=== PATIENT | female | born 1985 | race Caucasian/White ===

== ENCOUNTER 2016-12-30 12:29 | Inpatient (IN) | payer OTHER ==
--- NOTE | ~2016-12-30 | HP ---
History And Physical [place] [id number] [facility] [place]. [address] NAME: KATELYN RIOS : 83 STATUS : ADM IN PAT#: [id number] AGE: 31 ADM/REG DATE : 12/30/16 MR#: [id number] REPORT SERV DATE: 12/30/16 DICTATED BY: SARAHI JAIN DATE: 12/30/16 REPORT STATUS : Draft TRANSCRIBED BY: MODL DATE: 12/30/16 DATE OF ADMISSION: 12/30/2016 REASON FOR ADMISSION: Direct admission for Crohn's flare with a partial small-bowel obstruction near the terminal ilium. PRIMARY CARE DOCTOR: Unclear but sees Dr. Killian for GI needs. HISTORY OF PRESENT ILLNESS: This is a very pleasant, 31-year-old, female. She has suffered from Crohn's and previously was on Cimzia but had nausea and vomiting due to that. Recently had been on Humira for about the past seven months, typically has Crohn's flares with abdominal pain that is more periumbilical and nausea and vomiting. However, at this time, she had more intense abdominal pain periumbilically but also in the right lower quadrant prompting [facility], who did a CT of the abdomen and pelvis, and delineated wall thickening and dilation of distal terminal ilium consistent with Crohn disease, dilated proximal bowel consistent with partial small bowel obstruction. The patient states clinically her nausea and vomiting, for which there has been mildly bilious and no hematemesis has improved since being at [facility]. She does not want an NG tube at this time. She does feel feverish, however, does not have a subjective fever. No chills. Positive nausea and vomiting described. No chest pain. No chest pressure. No shortness of breath. [facility] called [facility], recommended hospitalist admission, which we are happy to assist. REVIEW OF SYSTEMS: 10-point review of systems done, see HPI. Otherwise, negative. SOCIAL HISTORY: Still smokes about a half pack per day. No alcohol. No drug use per patient. FAMILY HISTORY: Hypertension, at least one parent. HOME MEDICATIONS: See MAR. Continue what is relevant. PAST SURGICAL HISTORY: None. PAST MEDICAL HISTORY: See above. ALLERGIES: NO KNOWN DRUG ALLERGIES. PHYSICAL EXAMINATION: VITAL SIGNS: Blood pressure 119/59, 98.4 temp, 88 pulse, 16 respirations, 99% on room air. GENERAL: No acute distress. HEENT: PERRLA. No scleral icterus. CARDIOVASCULAR: Regular rate and rhythm. No murmur. RESPIRATORY: Clear to auscultation bilaterally. No wheezes. No crackles. ABDOMEN: She does have some mild tenderness to palpation periumbilical right lower History And Physical [address] [address] NAME: KATELYN RIOS : [birth year] STATUS : ADM IN PAT#: [id number] AGE: 31 ADM/REG DATE : 12/30/16 MR#: [id number] REPORT SERV DATE: 12/30/16 DICTATED BY: SARAHI JAIN DATE: 12/30/16 REPORT STATUS : Draft TRANSCRIBED BY: JAE DATE: 12/30/16 quadrant. No peritoneal signs. No rebound tenderness. EXTREMITIES: No edema. No ecchymosis. NEURO: GCS 15. A and O x4 out of 4. PSYCHIATRIC: Normal affect and mood. LABORATORY DATA: They are all pending here. CT, see above. ASSESSMENT AND PLAN: 1. Crohn's flare with terminal ileal thickening per CT at [facility]. 2. Partial small bowel obstruction proximal to that terminal ileum. 3. Improved nausea and vomiting, declines NG tube. 4. History of Humira use last week, takes normally q.2 weeks. 5. Positive fevers and immunocompromised state from Humira. PLAN: To go ahead and admit this patient. Panculture, Levaquin, Flagyl, D5, LR. If she has increased nausea, vomiting, or abdominal pain, place NG tube to low intermittent suction at this time. Place on IV Reglan. KUB tomorrow with hopeful clearance. Solu-Medrol 30 IV b.i.d. We will defer to GI regarding potential escalation of anti Crohn's biologic therapy. N.p.o. except medications and ice chips. Hopefully, she can do clears tomorrow if her ileus improves. Mag citrate at this time as well. See rest of my orders. All questions were answered. It took well over 60 minutes to do. Reference [employer] and [employer] WST/MODL Sarahi Jain DO / [id number] CC: DO Bhargavi Shearer DO
--- NOTE | ~2016-12-30 | DS ---
Discharge Summary [facility] [place] [address] [place]. [address] NAME: KATELYN RIOS : 83 STATUS : DIS IN PAT#: [id number] AGE: 31 ADM/REG DATE : 12/30/16 MR#: [id number] REPORT SERV DATE: 01/01/17 DICTATED BY: CHEMA LARA DATE: 01/01/17 REPORT STATUS : Draft TRANSCRIBED BY: MODL DATE: 01/01/17 ADMISSION DATE: 12/30/2016 DISCHARGE DATE: 01/01/2017 CONDITION ON DISCHARGE: Stable. DISPOSITION: Discharged to home with advice to follow up with GI specialist, Dr. Killian, in the next one to two weeks. We will try to set up an appointment for the patient before the patient is discharged. DIAGNOSES ON DISCHARGE: 1. Acute abdominal pain, nausea, vomiting secondary to partial small bowel obstruction- this has completely resolved now. 2. Probable acute exacerbation of Crohn's disease versus acute reaction to Humira. This has resolved also. 3. Chronic Crohn's disease, for which the patient takes Humira on a regular basis through GI specialist. 4. Chronic constipation, for which the patient takes Linzess on a regular basis. BRIEF HOSPITAL COURSE: The patient is a very pleasant 31-year-old female patient, who was been admitted to the hospital several times in the past for nausea, vomiting, constipation, and partial small bowel obstruction. According to the patient, this happens to her every time she takes the Humira shots. The patient states that she feels better for about two days after she takes the Humira and then after that, all this hits and sometimes she ends up being even hospitalized for this. Within two days, again the patient states that this resolves, but she is having had to take repeated courses of antibiotics. Anyway, the patient was admitted to the hospital for IV fluids, IV antibiotics, supportive care, and we waited for resolution of her partial small bowel obstruction. This did resolve and the patient had a bowel movement after magnesium citrate was given to the patient. She feels much better today and has no nausea, vomiting, is able to tolerate her food. She is ambulatory. She has no abdominal pain and no other bowel symptoms today. So, she requests discharge and she will be discharged. She will be discharged on the following medications, Augmentin 875 mg p.o. b.i.d. for twelve more days, Florastor one capsule twice a day for the same that she will be taking the Augmentin, prednisone taper 30 mg once a day for three days, 25 mg once a day for three days, 20 mg once a day for three days, 15 mg once a day for three days, 10 mg once a day for three days, 5 mg once a day for three days, and stop. Most recent labs that we have on her include blood cultures, which have come back with no growth in two days. CBC that shows WBC 7.6, hemoglobin and hematocrit 9.5 and 29.3, platelet count of 324. Her electrolyte profile shows completely normal electrolytes, BUN, and creatinine at this time. The patient also had KUB which showed partial small bowel obstruction on 12/31/2016. However, today 01/01/2017, her bowel obstruction has resolved. She will be sent home today on 01/01/2017 if okay with GI with advice to follow up with Dr. Killian in the next one to two Discharge Summary [address] [address] NAME: KATELYN RIOS : 83 STATUS : DIS IN PAT#: [id number] AGE: 31 ADM/REG DATE : 12/30/16 MR#: [id number] REPORT SERV DATE: 01/01/17 DICTATED BY: CHEMA LARA DATE: 01/01/17 REPORT STATUS : Draft TRANSCRIBED BY: JAE DATE: 01/01/17 weeks. I have spent about 35 to 40 minutes in coordinating discharge care of this patient including [id number] encounter and summarizing this discharge. DICTATED BY: Zoltan Rubio/JAE Chema Lara M.D. / [id number] CC: Zoltan Rubio DO
--- NOTE | ~2016-12-30 | CN ---
Consultation Report [facility] [address] [place]. [address] NAME: KATELYN PELAYO : 83 STATUS : ADM IN PAT#: [id number] AGE: 31 ADM/REG DATE : 12/30/16 MR#: [id number] REPORT SERV DATE: 12/31/16 DICTATED BY: TIKI CHO DATE: 12/31/16 REPORT STATUS : Draft TRANSCRIBED BY: MODL DATE: 12/31/16 GI CONSULTATION DATE OF CONSULTATION: 12/31/2016 REASON FOR CONSULTATION: Evaluation and management of abdominal pain, history of Crohn's disease, partial small bowel obstruction. HISTORY OF PRESENT ILLNESS: Ms. Pelayo is a very pleasant 31-year-old female patient, who is known to Dr. Bruno Killian in the outpatient setting, who presented to [facility] as a transfer from [facility] secondary to Crohn's flare with CT evidence of partial small bowel obstruction. Ms. Pelayo is a very pleasant 31-year-old female patient, who sees Dr. Killian in the outpatient setting. She has recently seen him on 12/27/2016 and plans at that time were to have the patient undergo colonoscopy in February. She has a history of Crohn's diagnosis in 07/2015 after being seen for what she describes as acute abdominal discomfort. She has back on Humira, Entyvio, Cimzia, and has back on Humira secondary to side effects from the other medication. She states that she took her regular dose of Humira on the . She does tell me that typically after taking a dose of Humira, she will have some abdominal discomfort, which typically resolves within 24 hours. However, at this time her symptoms progressed to the point she was nauseous, having dry heaves as well as increased abdominal discomfort. CT scan at [facility] showed abnormal wall thickening and dilation of the distal terminal ilium consistent with Crohn's disease as well as a dilated proximal bowel consistent with partial small bowel obstruction. She has been started on Levaquin, Flagyl as well as IV steroids and given a bottle of magnesium citrate per the hospitalist direction. She tells me that she is having diarrhea, typically she errs on the side of constipation, taking Linzess daily. She reports that she has had good improvement in her symptoms. She has a KUB which is pending at present and plan on starting her on a clear liquid diet. Continuing her steroids. Following up imaging and advancing her diet as tolerated. It was planned for her to have an outpatient colonoscopy in February with Dr. Killian. PAST MEDICAL HISTORY: Positive for Crohn's disease, ileitis, positive for tobacco abuse, cervical precancer, undergoing colposcopy. PAST SURGICAL HISTORY: None. PROCEDURES: EGD, colonoscopy, and colposcopy. FAMILY HISTORY: Noncontributory from a GI standpoint. Specifically, no inflammatory bowel disease history. SOCIAL HISTORY: Positive for tobacco, half pack per day. Denies alcohol or illicit drugs. Consultation Report [address] [place]. [address] NAME: KATELYN PELAYO : 83 STATUS : ADM IN [facility]#: [id number] AGE: 31 ADM/REG DATE : 12/30/16 MR#: [id number] REPORT SERV DATE: 12/31/16 DICTATED BY: TIKI CHO DATE: 12/31/16 REPORT STATUS : Draft TRANSCRIBED BY: JAE DATE: 12/31/16 ALLERGIES: SHE HAS NO KNOWN LISTED DRUG ALLERGIES. SHE STATES SHE HAS INTOLERANCE TO ENTYVIO AND CIMZIA. HOME MEDICATIONS: Consist of Humira every two weeks, Linzess, MiraLAX, Prilosec, Zofran. REVIEW OF SYSTEMS: A 10-point review of systems has been obtained with pertinent positives being addressed in the history of present illness. PHYSICAL EXAMINATION: VITAL SIGNS: Temperature is 98.1, pulse 66, respirations 16, blood pressure 114/70. NEUROLOGIC: An alert, female, resting in bed, but no focal deficits. GENERAL: Cooperative, in no apparent distress. Awake, alert, and oriented x3. HEAD, EARS, EYES, NOSE, AND THROAT: Anicteric. Pupils are equal, round, reactive to light, and accommodation. Normocephalic and atraumatic. NECK: No JVD. No palpable nodes. LUNGS: Clear anteriorly with normal respiratory effort exhibited. Equal expansion. CARDIOVASCULAR SYSTEM: Regular rate and rhythm. S1 and S2. No murmurs, rubs, gallops, S3, or S4 appreciated. ABDOMEN: Soft and flat with active bowel sounds. No organomegaly appreciated. Very minimal tenderness to palpation. No rebound or guarding elicited. EXTREMITIES: No edema. Normal distal pulses. SKIN: Warm, dry, and intact. PERTINENT LABORATORY DATA: Sodium 140, potassium 3.9, BUN is 7, creatinine 0.58. White count 6.7, hemoglobin 9.6, hematocrit 29.6, lactate 0.7. Procalcitonin less than 0.05. ASSESSMENT: 1. Abdominal pain, nausea with vomiting. 2. Crohn's flare with gastrointestinal thickening with resultant partial small bowel obstruction. 3. Fever which appears resolved. 4. History of tobacco abuse. PLAN: 1. Follow up KUB from today. 2. Clear liquid diet, advance as tolerated. 3. Steroids via IV today, change to p.o. in the morning. 4. Morning labs. 5. We will follow. IBRAHIMA/JAE Consultation Report [address] [place]. [address] NAME: KATELYN PELAYO : 83 STATUS : ADM IN PAT#: [id number] AGE: 31 ADM/REG DATE : 12/30/16 MR#: [id number] REPORT SERV DATE: 12/31/16 DICTATED BY: TIKI CHO DATE: 12/31/16 REPORT STATUS : Draft TRANSCRIBED BY: JAE DATE: 12/31/16 JASWANT Almeida / [id number] CC: DO Bhargavi Shearer DO
[2016-12-30 14:34] LABS: BASOPHILS 0.2 %; BASOPHILS ABSOLUTE 0.01 10/3/uL (0.0-0.16); EOSINOPHILS 0.2 %; EOSINOPHILS ABSOLUTE 0.01 10/3/uL (0.0-0.53); HEMATOCRIT 35.8 % (36.0-48.0); HEMOGLOBIN 11.5 g/dL (12.0-16.0); IMMATURE GRANULOCYTES 0.3 %; IMMATURE GRANULOCYTES ABSOLUTE 0.02 10/3/uL (0.0-0.11); LYMPHOCYTES 12.7 %; LYMPHOCYTES ABSOLUTE 0.83 10/3/uL (0.67-4.30); MEAN CORPUS HGB CONC 32.1 g/dL (32.0-36.0); MEAN CORPUSCULAR HEMOGLOB 27.9 pg (26.0-34.0); MEAN CORPUSCULAR VOLUME 86.9 fL (80-100); MEAN PLATELET VOLUME 9.7 fL (9.2-13.0); MONOCYTES 0.5 %; MONOCYTES ABSOLUTE 0.03 10/3/uL (0.21-1.20); NEUTROPHILS 86.1 %; NEUTROPHILS ABSOLUTE 5.63 10/3/uL (2.02-8.40); PLATELET COUNT 329 10/3/uL (150-400); RBC DISTRIBUTION WIDTH 13.5 % (12.0-16.0); RED CELL COUNT 4.12 10/6/uL (4.0-5.6); WHITE BLOOD CELLS 6.5 10/3/uL (4.5-10.5)
[2016-12-30 14:36] LABS: MANUAL DIFF NO %
[2016-12-30 14:55] LABS: LACTATE 0.7 MMOL/L (0.3-2.4)
[2016-12-30 14:57] LABS: A/G RATIO 0.6 (0.7-1.9); ALBUMIN 2.9 G/DL (3.5-5.0); ALKALINE PHOSPHATASE 88 U/L (45-117); BUN (BLOOD UREA NITROGEN) 5 MG/DL (6-23); CALCIUM, SERUM 8.3 MG/DL (8.5-10.4); CHLORIDE, SERUM 108 MMOL/L (96-112); CO2 (CARBON DIOXIDE) 23 MMOL/L (24-34); CREATININE 0.53 MG/DL (0.55-1.02); GFR AFRICAN AMERICAN 146 ML/MIN (>=60); GFR NON AFRICAN AMERICAN 126 ML/MIN (>=60); GLOBULIN 4.6 G/DL (2.5-4.1); GLUCOSE, SERUM 129 MG/DL (60-99); PHOSPHORUS, SERUM 1.6 MG/DL (2.5-4.5); POTASSIUM, SERUM 3.4 MMOL/L (3.5-5.3); SGOT(AST) 14 U/L (5-40); SGPT(ALT) 24 U/L (5-65); SODIUM, SERUM 141 MMOL/L (135-148); TOTAL BILIRUBIN 0.4 MG/DL (0-1.2); TOTAL PROTEIN 7.5 G/DL (6.0-8.5); ULTRASENSITIVE TSH 0.304 MCIU/ML (0.358-3.740)
[2016-12-30 15:17] LABS: PROCALCITONIN <0.05 ng/mL (<0.5)
[2016-12-30 16:52] LABS: ASCORBIC ACID (UR NOT ORDER) NEG (NEG); BILIRUBIN, URINE NEGATIVE (NEG); KETONE, URINE 80 MG/DL (NEG); LEUKOCYTE ESTERASE(NOT OR NEG (NEG); WBC (NOT ORDERED) (RFLEX) 1 (0-5)
[2016-12-31 05:24] LABS: BASOPHILS 0 %; EOSINOPHILS 0 %; HEMOGLOBIN 9.6 g/dL (12.0-16.0); IMMATURE GRANULOCYTES 0.1 %; IMMATURE GRANULOCYTES ABSOLUTE 0.01 10/3/uL (0.0-0.11); LYMPHOCYTES 19.4 %; MEAN CORPUS HGB CONC 32.4 g/dL (32.0-36.0); MEAN CORPUSCULAR VOLUME 86.3 fL (80-100); MEAN PLATELET VOLUME 9.2 fL (9.2-13.0); MONOCYTES 9.1 %; MONOCYTES ABSOLUTE 0.61 10/3/uL (0.21-1.20); NEUTROPHILS 71.4 %; NEUTROPHILS ABSOLUTE 4.77 10/3/uL (2.02-8.40); PLATELET COUNT 322 10/3/uL (150-400); RBC DISTRIBUTION WIDTH 13.3 % (12.0-16.0); RED CELL COUNT 3.43 10/6/uL (4.0-5.6); WHITE BLOOD CELLS 6.7 10/3/uL (4.5-10.5)
[2016-12-31 05:44] LABS: BUN (BLOOD UREA NITROGEN) 7 MG/DL (6-23); CHLORIDE, SERUM 108 MMOL/L (96-112); CO2 (CARBON DIOXIDE) 25 MMOL/L (24-34); CREATININE 0.58 MG/DL (0.55-1.02); GFR AFRICAN AMERICAN 141 ML/MIN (>=60); GFR NON AFRICAN AMERICAN 122 ML/MIN (>=60); GLUCOSE, SERUM 137 MG/DL (60-99); HEMATOCRIT 29.6 % (36.0-48.0); MANUAL DIFF NO %; PHOSPHORUS, SERUM 1.6 MG/DL (2.5-4.5); POTASSIUM, SERUM 3.9 MMOL/L (3.5-5.3); SODIUM, SERUM 140 MMOL/L (135-148)
[2016-12-31] MEDS ORDERED: HUMIRA SC (12:23)
[2016-12-31] MEDS ORDERED: LINZESS 290 M290 MCG PO (12:23)
[2016-12-31] MEDS ORDERED: PRILO PO (12:23)
[2016-12-31] MEDS ORDERED: XULANE TOP (12:24)
[2017-01-01 06:34] LABS: BASOPHILS 0 %; EOSINOPHILS 0 %; HEMATOCRIT 29.3 % (36.0-48.0); HEMOGLOBIN 9.5 g/dL (12.0-16.0); IMMATURE GRANULOCYTES 0.3 %; IMMATURE GRANULOCYTES ABSOLUTE 0.02 10/3/uL (0.0-0.11); LYMPHOCYTES 41.9 %; LYMPHOCYTES ABSOLUTE 3.16 10/3/uL (0.67-4.30); MANUAL DIFF NO %; MEAN CORPUS HGB CONC 32.4 g/dL (32.0-36.0); MEAN CORPUSCULAR HEMOGLOB 28.5 pg (26.0-34.0); MEAN PLATELET VOLUME 9.5 fL (9.2-13.0); MONOCYTES 7.4 %; MONOCYTES ABSOLUTE 0.56 10/3/uL (0.21-1.20); NEUTROPHILS 50.4 %; NEUTROPHILS ABSOLUTE 3.81 10/3/uL (2.02-8.40); PLATELET COUNT 324 10/3/uL (150-400); RBC DISTRIBUTION WIDTH 13.7 % (12.0-16.0); RED CELL COUNT 3.33 10/6/uL (4.0-5.6); WHITE BLOOD CELLS 7.6 10/3/uL (4.5-10.5)
[2017-01-01 06:56] LABS: BUN (BLOOD UREA NITROGEN) 6 MG/DL (6-23); CALCIUM, SERUM 8.4 MG/DL (8.5-10.4); CHLORIDE, SERUM 107 MMOL/L (96-112); CO2 (CARBON DIOXIDE) 25 MMOL/L (24-34); CREATININE 0.61 MG/DL (0.55-1.02); GFR AFRICAN AMERICAN 139 ML/MIN (>=60); GFR NON AFRICAN AMERICAN 120 ML/MIN (>=60); GLUCOSE, SERUM 124 MG/DL (60-99); PHOSPHORUS, SERUM 1.9 MG/DL (2.5-4.5); POTASSIUM, SERUM 3.9 MMOL/L (3.5-5.3); SODIUM, SERUM 138 MMOL/L (135-148)
[2017-01-01] MEDS ORDERED: AUG875 PO (11:20)
[2017-01-01] MEDS ORDERED: STERAPRED DS10 MG (11:20)
[2017-01-01] MEDS ORDERED: HABIT21 TOP (11:21)
[2017-01-01] MEDS ORDERED: FLORASTOR250 MG PO (11:21)
[2017-03-19] MEDS ORDERED: PRILO PO (23:00)
[2017-03-19] MEDS ORDERED: LINZESS 290 M290 MCG PO (23:00)
[2017-03-19] MEDS ORDERED: XULANE TOP (23:00)
[2017-03-19] MEDS ORDERED: HUMIRA PEN SC (23:01)
[2017-03-19] MEDS ORDERED: ENTOCORT3 PO (23:01)
[2017-03-21] MEDS ORDERED: P5 PO (11:08)
== END 2017-01-01 12:13 | disposition home or self-care (01) | DRG 386 ==
LOC: 5SO 12:29
PROVIDERS: Internal Medicine
DX: K50.012 Crohn's disease of small intestine with intestinal obstruction (principal); D64.9 Anemia, unspecified; F17.210 Nicotine dependence, cigarettes, uncomplicated; Z82.49 Family history of ischemic heart disease and other diseases of the circulatory system
CPT/HCPCS: 74000; 80048; 80053; 81001; 82150; 82962; 83605; 83690; 83735; 84100; 84145; 84443; 85025; 87040; 93005; A9270-GY; J1956; J2405; J2920